=== PATIENT | female | born 1950 | race Caucasian/White ===

== ENCOUNTER → 2016-04-23 | Outpatient (CLI) | payer BC ==
[~2016-04-23] MED LIST: ATOR10TA88 PO; DOCU-94 PO; GLC/500 PO; HYDR-5688 PO; OMEG10007 PO; PRLSR20 PO; PYRI100T4 PO
--- NOTE | 2016-04-23 16:37 | MAMMOGRAPHY REPORT ---
BILATERAL DIGITAL SCREENING MAMMOGRAM WITH CAD: 04/23/2016 CLINICAL HISTORY: Routine screening. Patient has no complaints. TECHNIQUE: Bilateral CC and MLO views were obtained. Current study was also evaluated with a Comput er Aided Detection (CAD) system. COMPARISON: Comparison is made to exams dated: 03/10/2015 mammogram, 03/01/2014 mammogram, 02/05/20 13 mammogram, 08/30/2010 mammogram, 08/15/2009 mammogram - [facility], and 07/28/2008. BREAST COMPOSITION: There are scattered areas of fibroglandular density in both breasts. FINDINGS: There are benign-appearing calcifications within the left breast. No new suspicious mass, architectural distortion or cluster of microcalcifications is seen. IMPRESSION: ACR BI-RADS CATEGORY 2: BENIGN There is no mammographic evidence of malignancy. A 1 year screening mammogram is recommended. The p atient will receive written notification of the results. Approximately 10% of breast cancers are not detected with mammography. A negative mammographic repor t should not delay biopsy if a clinically suggestive mass is present. Robina Levine M.D. ay/:04/23/2016 16:15:17 Electrical Systems Design Engineer: Ema Archuleta, [facility] letter sent: Normal 1/2 BI-RADS Code: ACR BI-RADS Category 2: Benign
== END | disposition home or self-care (01) ==
LOC: C.MAMM 14:53
PROVIDERS: ATTEND Family Medicine
DX: Z12.31 Encounter for screening mammogram for malignant neoplasm of breast (principal)

== ENCOUNTER 2016-07-13 20:39 | Emergency (ER) | payer BC ==
[~2016-07-13] VITALS: Ht 167.6 cm; Wt 75.7 kg
[2016-07-13 20:45] VITALS: TEMP 36.5; Ht 167.6 cm; Wt 75.7 kg
[2016-07-13] MEDS ORDERED: GLC/500 PO (21:11)
[2016-07-13] MEDS ORDERED: DOCU-94 PO (21:11)
[2016-07-13] MEDS ORDERED: ATOR10TA82 PO (21:11)
[2016-07-13] MEDS ORDERED: PRLSR20 PO (21:11)
[2016-07-13] MEDS ORDERED: PYRI100T4 PO (21:11)
[2016-07-13] MEDS ORDERED: OMEG10007 PO (21:11)
--- NOTE | 2016-07-13 21:25 | DIAGNOSTIC IMAGING REPORT ---
CT OF THE HEAD WITHOUT CONTRAST CLINICAL HISTORY: Fall. COMPARISON STUDY: No previous studies for comparison. CT DOSE: 1130.79 mGy.cm TECHNIQUE: Helical axial images of the head were obtained without IV contrast. Automated exposure control was utilized for the study. FINDINGS: No acute intracranial hemorrhage, midline shift or mass effect is present. Ventricular system is normal. Basilar cisterns are patent. There are no extra-axial collections. Umanzor-white differentiation is maintained. There is a small right forehead contusion. There is no calvarial fracture. Facial bone CT will be reported separately. IMPRESSION: 1. No acute intracranial findings. 2. Small right forehead contusion. No calvarial fracture. Electronically signed by: Denys Ram M.D. 07/13/2016 9:24 PM Dictated Date/Time: 07/13/2016 9:21 PM
--- NOTE | 2016-07-13 21:32 | DIAGNOSTIC IMAGING REPORT ---
MAXILLOFACIAL CT WITHOUT CONTRAST CLINICAL HISTORY: Fall. COMPARISON STUDY: None. TECHNIQUE: A maxillofacial CT was performed without IV contrast. Coronal and sagittal reformats were viewed. FINDINGS: There is no acute facial fracture. There is a small right forehead contusion. There is mild mucosal thickening of the sinuses. Alignment of the temporomandibular joints is anatomic. The cervical spine CT will be reported separately. The globes are intact. There is no retrobulbar hematoma. IMPRESSION: No acute facial fracture. Electronically signed by: Denys Ram M.D. 07/13/2016 9:30 PM Dictated Date/Time: 07/13/2016 9:24 PM
--- NOTE | 2016-07-13 21:37 | DIAGNOSTIC IMAGING REPORT ---
CT OF THE CERVICAL SPINE WITHOUT CONTRAST CLINICAL HISTORY: Fall. COMPARISON STUDY: No previous studies for comparison. TECHNIQUE: Helical axial images of the cervical spine were obtained without IV contrast. Sagittal and coronal reconstructions were viewed. FINDINGS: Alignment of the cervical spine is anatomic. The craniocervical junction is intact. There is no acute cervical spine fracture. Mild to moderate multilevel degenerative disc disease is present. There is no prevertebral edema. No pneumothorax is shown within visualized portions of the lung apices. A 1.1 cm cystic lesion is partially imaged within the right upper lobe and shown on axial image 706 of 706. IMPRESSION: 1. No acute cervical spine fracture or subluxation. 2. Partially visualized cystic 1.1 cm right upper lobe lesion. This is likely benign but a follow-up nonemergent chest CT is recommended. Electronically signed by: Denys Ram M.D. 07/13/2016 9:36 PM Dictated Date/Time: 07/13/2016 9:31 PM
--- NOTE | 2016-07-13 21:48 | DIAGNOSTIC IMAGING REPORT ---
CHEST 2 VIEWS ROUTINE CLINICAL HISTORY: Fall COMPARISON STUDY: No previous studies for comparison. FINDINGS: There is no pneumothorax or pleural effusion. Lung volumes are mildly diminished. There is no evidence of pulmonary edema. Cardiomediastinal silhouette is normal. IMPRESSION: No acute cardiopulmonary findings. Electronically signed by: Denys Ram M.D. 07/13/2016 9:47 PM Dictated Date/Time: 07/13/2016 9:46 PM
--- NOTE | 2016-07-13 21:52 | DIAGNOSTIC IMAGING REPORT ---
RIGHT HAND MIN 3 VIEWS ROUTINE CLINICAL HISTORY: Right hand pain following fall. COMPARISON: None FINDINGS: There is an acute mildly displaced fracture within the base and proximal shaft of the proximal phalanx of the right fifth digit. There is also an acute nondisplaced fracture within the base of the proximal phalanx of the right fourth phalanx. No additional acute fractures are identified on this exam. IMPRESSION: 1. Acute mildly displaced fracture of the base and proximal shaft of the proximal phalanx of the right fifth finger. 2. Acute nondisplaced fracture of the base of the proximal phalanx of the right fourth finger. Electronically signed by: Denys Ram M.D. 07/13/2016 9:50 PM Dictated Date/Time: 07/13/2016 9:47 PM
[2016-07-13] MEDS ORDERED: HYDR-5688 PO (22:15)
[2016-07-13] MEDS ORDERED: NORCO 5/325MG HOME PACK PO ONE (22:15)
[2016-07-13 22:35] VITALS: BP 162/90; PULSE 77; O2SAT 96
--- NOTE | 2016-07-14 00:12 | EMERGENCY ROOM VISIT NOTE ---
History First contact with patient: 20:49 Chief Complaint: FALL Stated Complaint: FELL ON SIDEWALK,RT HAND/SHOULDER/FACE History of Present Illness The patient is a 66 year old female who presents to the Emergency Room with complaints of fall that occurred about 11 or 12 hours ago. The patient was in [facility] [place] on a bus trip. She states that she was not looking where she was going, and tripped over an orange traffic cone. The patient tried to catch herself with her right hand and struck her right side face on the sidewalk. The patient is not on blood thinners. She did not lose consciousness with the event. The patient has right-sided facial pain and mild neck pain. She additionally has pain of her right hand. She did take ibuprofen, and rates her pain a 7/10 currently. The patient is without chest pain, chest tightness, shortness of breath, palpitations, abdominal pain, numbness, or paresthesias. Review of Systems More than 10 systems were reviewed and otherwise negative with the exception of history of present illness. Past Medical/Surgical History No pertinent chronic medical disease Family History No pertinent family history Social History Smoking Status: Former Smoker Current/Historical Medications Scheduled Atorvastatin (Lipitor), 10 MG PO DAILY Docusate Sodium (Colace), 1 CAP PO BID Fish Oil ([place]-3), 1 CAP PO BID Metformin Hcl (Glucophage), 500 MG PO BID Omeprazole (Prilosec), 20 MG PO DAILY Pyridoxine (Vitamin B6), 100 MG PO DAILY Scheduled PRN Hydrocodone/Acetaminophen 5MG/325MG (Matthews 5MG/325MG), 1 TABLET PO Q6 PRN for Pain Physical Exam Vital Signs Date Time Temp Pulse Resp B/P Pulse Ox O2 Delivery O2 Flow Rate FiO2 07/13/16 22:35 77 20 162/90 96 07/13/16 20:45 36.5 84 20 176/84 97 Room Air Pain Rating (0-10): 5.0 Physical Exam VITALS: Vitals are noted on the nurse's note and reviewed by myself. Vital signs stable. GENERAL: Well-developed, well-nourished, female, who is in no acute distress and resting comfortably. Patient is cooperative with the examination. HEAD: Superficial abrasion appreciated over the right forehead down to the right temporal area and to the right side face. There is no significant laceration or gross hematoma noted. No rios sign or raccoon eyes. EARS: External ear normal. External auditory canals clear, tympanic membranes pearly umanzor without erythema or effusion bilaterally. EYES: Pupils equal round and reactive to light and accommodation. Conjunctivae without injection, sclerae without icterus. Extraocular movements intact. NOSE: Patent, turbinates without inflammation or discharge. MOUTH: Mucous membranes moist. Tonsils are not enlarged. Pharynx without erythema, blood, or exudate. Uvula midline. Airway patent. NECK: Supple without nuchal rigidity. No lymphadenopathy. No thyromegaly. Cervical spine is nontender. HEART: Regular rate and rhythm without murmurs gallops or rubs. LUNGS: Clear to auscultation bilaterally without wheezes, rales or rhonchi. No retractions or accessory muscle use. ABDOMEN: Positive normal bowel sounds x 4. Soft, nontender, without masses or organomegaly. No guarding or rebound tenderness. MUSCULOSKELETAL: Ecchymosis and edema is appreciated over the right third, fourth, and fifth metacarpals and phalanges of the right hand. The patient is able to touch her thumb to her fingers. Trapeze Artist strength of the right hand is 2/ 5. No laceration noted. No other significant extremity injury appreciated. No spinal tenderness. Negative straight leg raise. NEURO: Patient was alert and oriented to person place and time. CN II through XII grossly intact. Deep tendon reflexes 2+ throughout. Medical Decision & Procedures ER Provider Diagnostic Interpretation: CT OF THE HEAD WITHOUT CONTRAST CLINICAL HISTORY: Fall. COMPARISON STUDY: No previous studies for comparison. CT DOSE: 1130.79 mGy.cm TECHNIQUE: Helical axial images of the head were obtained without IV contrast. Automated exposure control was utilized for the study. FINDINGS: No acute intracranial hemorrhage, midline shift or mass effect is present. Ventricular system is normal. Basilar cisterns are patent. There are no extra-axial collections. Umanzor-white differentiation is maintained. There is a small right forehead contusion. There is no calvarial fracture. Facial bone CT will be reported separately. IMPRESSION: 1. No acute intracranial findings. 2. Small right forehead contusion. No calvarial fracture. CT OF THE CERVICAL SPINE WITHOUT CONTRAST CLINICAL HISTORY: Fall. COMPARISON STUDY: No previous studies for comparison. TECHNIQUE: Helical axial images of the cervical spine were obtained without IV contrast. Sagittal and coronal reconstructions were viewed. FINDINGS: Alignment of the cervical spine is anatomic. The craniocervical junction is intact. There is no acute cervical spine fracture. Mild to moderate multilevel degenerative disc disease is present. There is no prevertebral edema. No pneumothorax is shown within visualized portions of the lung apices. A 1.1 cm cystic lesion is partially imaged within the right upper lobe and shown on axial image 706 of 706. IMPRESSION: 1. No acute cervical spine fracture or subluxation. 2. Partially visualized cystic 1.1 cm right upper lobe lesion. This is likely benign but a follow-up nonemergent chest CT is recommended. MAXILLOFACIAL CT WITHOUT CONTRAST CLINICAL HISTORY: Fall. COMPARISON STUDY: None. TECHNIQUE: A maxillofacial CT was performed without IV contrast. Coronal and sagittal reformats were viewed. FINDINGS: There is no acute facial fracture. There is a small right forehead contusion. There is mild mucosal thickening of the sinuses. Alignment of the temporomandibular joints is anatomic. The cervical spine CT will be reported separately. The globes are intact. There is no retrobulbar hematoma. IMPRESSION: No acute facial fracture. CHEST 2 VIEWS ROUTINE CLINICAL HISTORY: Fall COMPARISON STUDY: No previous studies for comparison. FINDINGS: There is no pneumothorax or pleural effusion. Lung volumes are mildly diminished. There is no evidence of pulmonary edema. Cardiomediastinal silhouette is normal. IMPRESSION: No acute cardiopulmonary findings. RIGHT HAND MIN 3 VIEWS ROUTINE CLINICAL HISTORY: Right hand pain following fall. COMPARISON: None FINDINGS: There is an acute mildly displaced fracture within the base and proximal shaft of the proximal phalanx of the right fifth digit. There is also an acute nondisplaced fracture within the base of the proximal phalanx of the right fourth phalanx. No additional acute fractures are identified on this exam. IMPRESSION: 1. Acute mildly displaced fracture of the base and proximal shaft of the proximal phalanx of the right fifth finger. 2. Acute nondisplaced fracture of the base of the proximal phalanx of the right fourth finger. Medications Administered Medications (Trade) Dose Ordered Sig/Jt Route Start Time Stop Time Status Last Admin Dose Admin Acetaminophen/ Hydrocodone Bitart (Matthews 5/325mg Home Pack) 1 [facility] UD ONCE PO 07/13/16 22:15 07/13/16 22:16 DC 07/13/16 22:16 1 HOMEPACK ED Course Physical exam and history were performed. Nursing notes and EMR were reviewed. Patient appears to have fallen and suffered injury to her right-sided face and right hand. I offered the patient pain medication, but she declined at this time. Because of her injuries I did elect to perform CT scans of the head, neck , and face. Additionally plain films of the chest and hand were ordered. The patient CT scans are as above and do not show evidence of acute fracture or bleed. Chest x-ray is without acute findings. The patient appears to have suffered a fracture to her right fourth and fifth fingers. Incidentally she has a 1.1 cm cystlike structure in her right upper lung. I had a lengthy discussion with the patient regarding her findings. She was placed in an Ortho-Glass splint and given an arm sling. She has followed with Dr. Zambrano of orthopedics in the past and will be referred back to his care. The patient will be given a home pack and short continuation prescription for Vicodin. I explained the importance of following up with her PCP for her lung finding, as she will need a nonemergent CT scan of the chest. The patient abrasions were dressed with bacitracin, and she may continue to do at home. The patient was otherwise felt to be stable for discharge home. The case was discussed with my attending physician, Dr Alcaraz, who also and apparently evaluated the patient. The patient was discharged home under the care of a female friend who is acting as the garbage collector driver today. The chart was completed utilizing [employer] Speech Voice Recognition Software. Grammatical errors, random word insertions, pronoun errors, and incomplete sentences are an occasional consequence of this system due to software limitations, ambient noise, and hardware issues. Any formal questions or concerns about the content, text, or information contained within the body of this dictation should be directly addressed to the provider for clarification. . Medical Decision Differential diagnosis includes, but is not limited to: Sprain, strain, fracture , dislocation, subluxation, contusion, intracranial bleed, facial fracture, laceration, and others Impression Primary Impression: Fall Additional Impressions: Abnormal finding on CT scan Right hand fracture Contusion of face Departure Information Dispostion Home / Self-Care Condition FAIR Prescriptions Hydrocodone/Acetaminophen 5MG/325MG (Matthews 5MG/325MG) Tab 1 TABLET PO Q6 Y for Pain, #12 TAB For Initial Treatment Prov: Dani Ba PA-C 07/13/16 Referrals Andrew Zambrano D.O. Forms HOME CARE DOCUMENTATION FORM, IMPORTANT VISIT INFORMATION Patient Instructions Fractures - [facility], [facility], ED Scar Tips to Minimize, ED Compartment Syndrome At Risk For Additional Instructions You were seen and evaluated today on an emergency basis only. This is not a substitute for, or an effort to provide, complete comprehensive medical care. It is not possible to recognize and treat all injuries or illnesses in a single emergency department visit. For this reason it is recommended that you followup with [facility] by telephone on Friday to arrange a follow-up visit this week. For baseline pain relief you may alternate ibuprofen and acetaminophen every 4 hours for pain control. Take 600 mg ibuprofen (Advil) and then 4 hours later take 1000 mg acetaminophen (Tylenol). Do not take more than 3000 mg acetaminophen in a single day. Matthews (hydrocodone/acetaminophen) 5/325 mg every 6 hours as needed for worsening breakthrough pain. Do not drink or drive on [place]. This medication will likely make you tired. Do not take Matthews and Tylenol at the same time as both contain acetaminophen. Matthews may cause constipation. You may wish to take an [id number] stool softener like Colace if this occurs. Do not get your splint wet. Wear your arm sling for comfort. Apply bacitracin ointment to your abrasions of the face to help prevent infection. CT scan of your neck showed a 1.1 cm cystic-appearing lesion in your right upper lung. Radiology recommends a nonemergent CT scan of the chest. This can be performed by your primary care physician. Please follow-up with them this week. You are welcome to return to the emergency department anytime with new, worsening, or concerning symptoms. Problem Qualifiers
== END 2016-07-13 22:35 | disposition home or self-care (01) ==
LOC: C.EDB 20:40 → C.EDD 22:35
DX: S00.83XA Contusion of other part of head, initial encounter (principal); S62.91XA Unspecified fracture of right hand, initial encounter for closed fracture; W01.0XXA Fall on same level from slipping, tripping and stumbling without subsequent striking against object, initial encounter; Z79.84 Long term (current) use of oral hypoglycemic drugs; Z79.899 Other long term (current) drug therapy; Z87.891 Personal history of nicotine dependence

== ENCOUNTER → 2016-09-16 | Outpatient (CLI) | payer BC ==
[~2016-09-16] MED LIST changes: +ATOR10TA82 PO; -ATOR10TA88 PO; +OPTIRAY 320 IV PRN
--- NOTE | 2016-09-16 11:33 | DIAGNOSTIC IMAGING REPORT ---
CT OF THE CHEST WITH IV CONTRAST CLINICAL HISTORY: Lung lesion. COMPARISON STUDY: Cervical spine CT and chest radiograph July 13, 2016. TECHNIQUE: Following IV administration of 93 mL of Optiray-320, helical axial images of the chest were obtained. Images were viewed in the axial, sagittal and coronal planes. IV contrast was administered without complication. CT DOSE: 202.62 mGy.cm FINDINGS: No enlarged axillary, mediastinal or hilar lymph nodes are present. The size of the heart is normal. A 9 mm left lobe thyroid nodule is present. Central airways are patent. Note is made of a 1.2 cm predominantly cystic lesion within the right upper lobe shown on image 92 of 261. This corresponds the lesion shown on prior cervical spine CT. This contains several thin septations as well as a slightly thickened septation. A 8 mm calcified left lower lobe nodule is unchanged from CT of January 12, 2013. This is benign. Groundglass opacities represent atelectasis. There is no pneumothorax or pleural effusion. Bony thorax is unremarkable. A small hiatal hernia is present. There is fatty infiltration of the liver. IMPRESSION: 1.2 cm cystic right upper lobe lesion which contains several thin septations and a slightly thickened septation. This corresponds to the abnormality on prior cervical spine CT. A benign etiology is favored although this lesion is indeterminate and a follow-up chest CT in 6 months to ensure stability is recommended. Electronically signed by: Denys Ram M.D. 09/16/2016 11:31 AM Dictated Date/Time: 09/16/2016 11:20 AM
== END | disposition home or self-care (01) ==
LOC: C.CTS 10:26
PROVIDERS: ATTEND Family Medicine
DX: R91.1 Solitary pulmonary nodule (principal)

== ENCOUNTER → 2016-10-28 | Outpatient (CLI) | payer BC ==
[~2016-10-28] MED LIST changes: -ATOR10TA82 PO; +ATOR10TA88 PO; -OPTIRAY 320 IV PRN
== END | disposition home or self-care (01) ==
LOC: C.MAMM 15:00
PROVIDERS: ATTEND Family Medicine
DX: M81.0 Age-related osteoporosis without current pathological fracture (principal)

== ENCOUNTER → 2017-03-18 | Outpatient (CLI) | payer BC ==
[~2017-03-18] MED LIST changes: +ATOR10TA82 PO; -ATOR10TA88 PO; -HYDR-5688 PO; +OPTIRAY 320 IV PRN; +PATIENT'S ALLERGY INFO NEEDS ENTERED SCH
--- NOTE | 2017-03-18 12:11 | DIAGNOSTIC IMAGING REPORT ---
CHEST CT WITH CONTRAST CT DOSE: 219.14 mGy.cm HISTORY: Six-month follow-up of a pulmonary nodule LESION OF LUNG TECHNIQUE: Multiaxial CT images of the chest were performed following the intravenous administration of contrast. A dose lowering technique was utilized adhering to the principles of ALARA. COMPARISON: CT chest 09/16/2016. FINDINGS: Thyroid is mildly heterogeneous with a 1 mm nodule seen within the mid left thyroid. No pathologic adenopathy identified. Heart is normal in size without pericardial effusion. Coronary arterial calcifications noted. Thoracic aorta is normal in both course and caliber without aneurysm or dissection. The opacified pulmonary arterial tree is unremarkable. There is no pneumothorax, pleural effusion, focal airspace consolidation or overt pulmonary edema. There is mild dependent subsegmental bibasilar atelectasis. All 2 mm pleural-based nodule of the left upper lobe, image 72 series 4 is unchanged and likely benign. Linear subsegmental opacity of the medial segment right middle lobe suggest areas of scarring/atelectasis. 1.2 x 1.2 cm cystic lesion of the right upper lobe containing central internal septations redemonstrated on image 91 series 4 which appears unchanged from comparison study 09/16/2016. No additional suspicious nodules or lesions identified. The central airways are patent. Imaged upper abdominal structures are unremarkable. Soft tissues are within normal limits. Bones appear intact. Multilevel endplate spurring and intervertebral disc space narrowing of the spine. IMPRESSION: 1. No acute intrathoracic abnormality identified. 2. Unchanged 1.2 x 1.2 cm cystic lesion the right upper lobe containing internal septations appears stable dating back to comparison study 09/16/2016. Again, this is indeterminate however favors a benign etiology. As a precautionary measure an additional six-month follow-up is recommended to further evaluate. Electronically signed by: Kaushik Thomason M.D. 03/18/2017 12:10 PM Dictated Date/Time: 03/18/2017 12:04 PM
== END | disposition home or self-care (01) ==
LOC: C.CTS 10:56
PROVIDERS: ATTEND Family Medicine
DX: R91.1 Solitary pulmonary nodule (principal)

== ENCOUNTER → 2017-05-27 | Outpatient (CLI) | payer BC ==
[~2017-05-27] MED LIST changes: -OPTIRAY 320 IV PRN; -PATIENT'S ALLERGY INFO NEEDS ENTERED SCH
--- NOTE | 2017-05-28 15:22 | MAMMOGRAPHY REPORT ---
BILATERAL DIGITAL SCREENING MAMMOGRAM TOMOSYNTHESIS WITH CAD: 05/27/2017 CLINICAL HISTORY: Routine screening. Patient has no complaints. TECHNIQUE: Breast tomosynthesis in addition to standard 2D mammography was performed. Current study was also evaluated with a Computer Aided Detection (CAD) system. COMPARISON: Comparison is made to exams dated: 04/23/2016 mammogram, 03/10/2015 mammogram, 03/01/2014 mammogram, 02/04/2013 mammogram, 01/09/2012 mammogram, and 08/30/2010 mammogram - [facility]. BREAST COMPOSITION: There are scattered areas of fibroglandular density in both breasts. FINDINGS: No suspicious mass, architectural distortion or cluster of microcalcifications is seen. IMPRESSION: ACR BI-RADS CATEGORY 1: NEGATIVE There is no mammographic evidence of malignancy. A 1 year screening mammogram is recommended. The pa tient will receive written notification of the results. Approximately 10% of breast cancers are not detected with mammography. A negative mammographic report should not delay biopsy if a clinically suggestive mass is present. Robina Levine M.D. ay/:05/27/2017 17:22:40 Fusing Machine Operator: Tomasa RICO(R)(M), [facility] letter sent: Normal 1/2 BI-RADS Code: ACR BI-RADS Category 1: Negative
== END | disposition home or self-care (01) ==
LOC: C.MAMM 13:33
PROVIDERS: ATTEND Family Medicine
DX: Z12.31 Encounter for screening mammogram for malignant neoplasm of breast (principal)